=== PATIENT | female | born 1965 | race African-American/Black ===

== ENCOUNTER → 2016-10-03 | Outpatient (CLI) | payer BC ==
[2014-07-08 13:56] VITALS: BP 135/79
[~2016-10-03] MED LIST: HYDR-2666 PO; LORA0.5T PO; MULT1TAB97 PO; NIAC500T PO; QUIN1TAB4 PO; SERT25TA PO
--- NOTE | 2016-10-03 11:08 | RAD ---
DATE: 10/03/2016. EXAM: DIGITAL DIAGNOSTIC RT, BREAST RIGHT. Right breast ultrasound. HISTORY: Follow-up right-sided nodules. Personal history of right breast cancer status post breast conservation therapy. COMPARISON: 04/05/2016, 08/07/2015. This study was interpreted with the benefit of Computerized Aided Detection (CAD). FINDINGS: The breast parenchyma heterogeneously dense, which could reduce sensitivity of mammography. The previously noted small mammographic nodules deep to the nipple and medially appear mammographically smaller than on the prior study. Sonographically, there is a hypoechoic nodule at the 12:00 position 1 cm from the nipple that measures 6 x 5 x 4 m. It has a circumscribed or lobulated margin. See image 2. At the 1:00 position 1 cm from the nipple, a second hypoechoic nodule appears round or oval. It measures 4 x 4 mm as decreased in size from 5 x 5 mm previously. A benign lesion such a complicated cyst or fat necrosis is favored given interval decrease in size. There are breast conservation therapy changes superolaterally on the right. There are no suspicious calcifications or architectural distortion. Sonographic images of the right axilla were also obtained. There is a 14 x 11 mm lymph node with a thickened cortex. A second smaller lymph node measures 9 x 7 mm, but also demonstrates a thickened cortex. BI-RADS CATEGORY: 4 SUSPICIOUS ABNORMALITY-BIOPSY SHOULD BE CONSIDERED. RECOMMENDED FOLLOW-UP: BIO BIOPSY RECOMMENDED. 1. Recommend ultrasound-guided biopsy of the largest right axillary lymph node. 2. Recommend ultrasound-guided biopsy of the small lobulated nodule at the 12:00 position 1 cm from the nipple. PQRS compliance statement: Patient information was entered into a reminder system with a target due date (now) for the next mammogram. Mammography is a sensitive method for finding small breast cancers, but it does not detect them all and is not a substitute for careful clinical examination. A negative mammogram does not negate a clinically suspicious finding and should not result in delay in biopsying a clinically suspicious abnormality. "Our facility is accredited by the [employer] Mammography [employer]."
== END | disposition home or self-care (01) ==
LOC: MAMMO 09:25
PROVIDERS: ATTEND Internal Medicine Hematology & Oncology
DX: R92.8 Other abnormal and inconclusive findings on diagnostic imaging of breast (principal); N63 Unspecified lump in breast
CPT/HCPCS: 76641; G0206; 77065

== ENCOUNTER 2016-10-20 08:22 | Day surgery (SDC) | payer BC ==
[~2016-10-20] VITALS: Ht 165.1 cm; Wt 79.8 kg
--- NOTE | 2016-10-20 06:52 | HP ---
ADMIT DATE: 10/20/2016 HISTORY OF PRESENT ILLNESS: The patient comes in because of a mass of the right breast. 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 She now has 2 lymph nodes in the axilla, one which could be palpable and the mass in the breast seen on mammography. PAST MEDICAL HISTORY: Shows normal childhood diseases. As stated before, she has had multiple breast biopsies and surgery and also had a partial mastectomy on the right. She also has hypertension for which she takes medicines and takes tamoxifen also for the breast cancer. She otherwise is doing well. The family history is very strong with sisters and aunts and I think her mother, all had breast cancer. The patient has had the mammogram, which showed 2 axillary lymph nodes, which are enlarged and the mass of the breast behind the nipple on the right that we discussed at length with she and her and they definitely were given the option of needle biopsies, but they do not want that. They want to have the mass of the breast and the axillary masses removed. They do not want biopsies or needle biopsies though this was offered over and over to them. PHYSICAL EXAMINATION: GENERAL: Shows an alert female in no acute distress. HEENT: Grossly normal. CHEST: Clear bilaterally to auscultation. HEART: Had no murmurs, heaves, friction, rubs or thrills and had a regular rate of 70 beats per minute. BREASTS: The left axilla and left breast were normal without masses or other problems. The right breast had the deformity of the partial mastectomy and no other definite mass is palpable. There is some degree of tenderness of the breast. The right axilla did have a mass that I could feel about 1.5 cm or so in size in the right axilla. There was no evidence of inflammation or other problems. The examination otherwise was grossly negative. IMPRESSION: 1. Axillary adenopathy on the right. 2. Mass of the right breast. 3. Hypertension. 4. History of carcinoma in situ of the right breast and postoperative partial mastectomy. LUDIVINA RIZO MD DR: KATELYN/adele JOB#: [id number] / [id number]
[~2016-10-20 08:22] MED LIST changes: +CEFAZOLIN 1GM IVPB FOR OMNI 50 ML IV PRN; +FENTANYL PF 100 MCG/2 ML VIAL. IV PRN; +HYDROMORPHONE 2 MG/ML VIAL. IV PRN; +IV RINGERS,LACTATED 1000ML 1,000 ML IV SCH; +LIDOCAINE 1% 1 ML SYRINGE. ID PRN; +MORPHINE SULFATE 2 MG/ML DISP.SYRIN. IV PRN; +ONDANSETRON PF 4 MG/2 ML VIAL. IV PRN; +PROCHLORPERAZINE 10 MG/2 ML VIAL. IV PRN; +TAMO20TA PO
[2016-10-20 09:17] LABS: BASO % 1 % (0-3); EOS % 1 % (0-3); HEMATOCRIT 37.8 % (36.0-47.0); HEMOGLOBIN 12.2 g/dL (12.0-15.5); LYMPH # 1.5 x10^3/uL (1.0-4.8); LYMPH % 36 % (24-48); MEAN CORPUSCULAR HEMOGLOBIN 28 pg (25-35); MEAN CORPUSCULAR HGB CONC 32 g/dL (31-37); MEAN CORPUSCULAR VOLUME 87 fL (79-100); MONO % 6 % (0-9); NEUT % 56 % (31-73); PLATELET COUNT 198 x10^3/uL (140-400); RED BLOOD COUNT 4.33 x10^6/uL (3.50-5.40); RED CELL DISTRIBUTION WIDTH 13.4 % (11.5-14.5); WHITE BLOOD COUNT 4.1 x10^3/uL (4.0-11.0)
[2016-10-20 09:24] LABS: INR 0.9 (0.8-1.1); PROTHROMBIN TIME PATIENT 11.9 SEC (11.7-14.0)
[2016-10-20] MEDS ORDERED: METHYLENE BLUE 1% 1 ML VIAL. IJ ONE (09:45)
[2016-10-20] MEDS ORDERED: SEVOFLURANE 61 TO 120 MINUTES. IH ONE (09:47)
[2016-10-20] MEDS ORDERED: FENTANYL PF 100 MCG/2 ML VIAL. ONE ×2 (09:47→12:45)
[2016-10-20 09:48] LABS: CALCIUM 9.4 mg/dL (8.5-10.1); CREATININE 0.8 mg/dL (0.6-1.0); GFR 91.9; POTASSIUM 3.7 mmol/L (3.5-5.1)
[2016-10-20] MEDS ORDERED: LIDOCAINE 2% 100 MG/5 ML DISP.SYRIN. ONE (09:48)
[2016-10-20] MEDS ORDERED: PROPOFOL 20 ML IV ONE ×2 (09:48→11:33)
[2016-10-20] MEDS ORDERED: MIDAZOLAM HCL 2 MG/2 ML VIAL. ONE (09:48)
[2016-10-20] MEDS ORDERED: DEXAMETHASONE SOD PHOS 20 MG/5 ML VIAL. ONE (09:48)
[2016-10-20] MEDS ORDERED: ONDANSETRON PF 4 MG/2 ML VIAL. ONE (09:48)
[2016-10-20 10:02] LABS: ALBUMIN 3.6 g/dL (3.4-5.0); TOTAL BILIRUBIN 0.3 mg/dL (0.2-1.0); TOTAL PROTEIN 7.2 g/dL (6.4-8.2)
--- NOTE | 2016-10-20 11:15 | PDOC ---
SURGICAL PROGRESS NOTE Subjective No change in dictated H&P. Vital Signs Vital Signs Date Time Temp Pulse Resp B/P Pulse Ox O2 Delivery O2 Flow Rate FiO2 10/20/16 09:03 97.8 72 20 162/84 98 Room Air 97.8 Labs Laboratory Tests Test 10/20/16 09:10 White Blood Count 4.1x10^3/uL (4.0-11.0) Red Blood Count 4.33x10^6/uL (3.50-5.40) Hemoglobin 12.2g/dL (12.0-15.5) Hematocrit 37.8% (36.0-47.0) Mean Corpuscular Volume 87fL (79-100) Mean Corpuscular Hemoglobin 28pg (25-35) Mean Corpuscular Hemoglobin Concent 32g/dL (31-37) Red Cell Distribution Width 13.4% (11.5-14.5) Platelet Count 198x10^3/uL (140-400) Neutrophils (%) (Auto) 56% (31-73) Lymphocytes (%) (Auto) 36% (24-48) Monocytes (%) (Auto) 6% (0-9) Eosinophils (%) (Auto) 1% (0-3) Basophils (%) (Auto) 1% (0-3) Neutrophils # (Auto) 2.3x10^3uL (1.8-7.7) Lymphocytes # (Auto) 1.5x10^3/uL (1.0-4.8) Monocytes # (Auto) 0.3x10^3/uL (0.0-1.1) Eosinophils # (Auto) 0.1x10^3/uL (0.0-0.7) Basophils # (Auto) 0.0x10^3/uL (0.0-0.2) Prothrombin Time 11.9SEC (11.7-14.0) Prothromb Time International Ratio 0.9 (0.8-1.1) Sodium Level 146mmol/L (136-145) Potassium Level 3.7mmol/L (3.5-5.1) Chloride Level 107mmol/L (98-107) Carbon Dioxide Level 27mmol/L (21-32) Anion Gap 12 (6-14) Blood Urea Nitrogen 10mg/dL (7-20) Creatinine 0.8mg/dL (0.6-1.0) Estimated GFR (Cockcroft-Gault) 91.9 BUN/Creatinine Ratio 13 (6-20) Glucose Level 115mg/dL (70-99) Calcium Level 9.4mg/dL (8.5-10.1) Total Bilirubin 0.3mg/dL (0.2-1.0) Aspartate Amino Transf (AST/SGOT) 18U/L (15-37) Alanine Aminotransferase (ALT/SGPT) 28U/L (14-59) Alkaline Phosphatase 69U/L (46-116) Total Protein 7.2g/dL (6.4-8.2) Albumin 3.6g/dL (3.4-5.0) Albumin/Globulin Ratio 1.0 (1.0-1.7) Laboratory Tests Test 10/20/16 09:10 White Blood Count 4.1x10^3/uL (4.0-11.0) Red Blood Count 4.33x10^6/uL (3.50-5.40) Hemoglobin 12.2g/dL (12.0-15.5) Hematocrit 37.8% (36.0-47.0) Mean Corpuscular Volume 87fL (79-100) Mean Corpuscular Hemoglobin 28pg (25-35) Mean Corpuscular Hemoglobin Concent 32g/dL (31-37) Red Cell Distribution Width 13.4% (11.5-14.5) Platelet Count 198x10^3/uL (140-400) Neutrophils (%) (Auto) 56% (31-73) Lymphocytes (%) (Auto) 36% (24-48) Monocytes (%) (Auto) 6% (0-9) Eosinophils (%) (Auto) 1% (0-3) Basophils (%) (Auto) 1% (0-3) Neutrophils # (Auto) 2.3x10^3uL (1.8-7.7) Lymphocytes # (Auto) 1.5x10^3/uL (1.0-4.8) Monocytes # (Auto) 0.3x10^3/uL (0.0-1.1) Eosinophils # (Auto) 0.1x10^3/uL (0.0-0.7) Basophils # (Auto) 0.0x10^3/uL (0.0-0.2) Prothrombin Time 11.9SEC (11.7-14.0) Prothromb Time International Ratio 0.9 (0.8-1.1) Sodium Level 146mmol/L (136-145) Potassium Level 3.7mmol/L (3.5-5.1) Chloride Level 107mmol/L (98-107) Carbon Dioxide Level 27mmol/L (21-32) Anion Gap 12 (6-14) Blood Urea Nitrogen 10mg/dL (7-20) Creatinine 0.8mg/dL (0.6-1.0) Estimated GFR (Cockcroft-Gault) 91.9 BUN/Creatinine Ratio 13 (6-20) Glucose Level 115mg/dL (70-99) Calcium Level 9.4mg/dL (8.5-10.1) Total Bilirubin 0.3mg/dL (0.2-1.0) Aspartate Amino Transf (AST/SGOT) 18U/L (15-37) Alanine Aminotransferase (ALT/SGPT) 28U/L (14-59) Alkaline Phosphatase 69U/L (46-116) Total Protein 7.2g/dL (6.4-8.2) Albumin 3.6g/dL (3.4-5.0) Albumin/Globulin Ratio 1.0 (1.0-1.7) LUDIVINA RIZO MD Oct 20, 2016 11:15
--- NOTE | 2016-10-20 11:18 | PDOC ---
SURGICAL PROGRESS NOTE Subjective Op Note: Surgeon..........................................Konrad Pre op diag.....................................tumor right breast and left axilla Post op diag...................................same Anesthesia.....................................general Procedure......................................excision tumor right breast and right axilla per needle pocalization Drains............................................none Fluids............................................see anesthesia sheet Blood loss.....................................10cc Condition........................................satisfactory Vital Signs Vital Signs Date Time Temp Pulse Resp B/P Pulse Ox O2 Delivery O2 Flow Rate FiO2 10/20/16 09:03 97.8 72 20 162/84 98 Room Air 97.8 Labs Laboratory Tests Test 10/20/16 09:10 White Blood Count 4.1x10^3/uL (4.0-11.0) Red Blood Count 4.33x10^6/uL (3.50-5.40) Hemoglobin 12.2g/dL (12.0-15.5) Hematocrit 37.8% (36.0-47.0) Mean Corpuscular Volume 87fL (79-100) Mean Corpuscular Hemoglobin 28pg (25-35) Mean Corpuscular Hemoglobin Concent 32g/dL (31-37) Red Cell Distribution Width 13.4% (11.5-14.5) Platelet Count 198x10^3/uL (140-400) Neutrophils (%) (Auto) 56% (31-73) Lymphocytes (%) (Auto) 36% (24-48) Monocytes (%) (Auto) 6% (0-9) Eosinophils (%) (Auto) 1% (0-3) Basophils (%) (Auto) 1% (0-3) Neutrophils # (Auto) 2.3x10^3uL (1.8-7.7) Lymphocytes # (Auto) 1.5x10^3/uL (1.0-4.8) Monocytes # (Auto) 0.3x10^3/uL (0.0-1.1) Eosinophils # (Auto) 0.1x10^3/uL (0.0-0.7) Basophils # (Auto) 0.0x10^3/uL (0.0-0.2) Prothrombin Time 11.9SEC (11.7-14.0) Prothromb Time International Ratio 0.9 (0.8-1.1) Sodium Level 146mmol/L (136-145) Potassium Level 3.7mmol/L (3.5-5.1) Chloride Level 107mmol/L (98-107) Carbon Dioxide Level 27mmol/L (21-32) Anion Gap 12 (6-14) Blood Urea Nitrogen 10mg/dL (7-20) Creatinine 0.8mg/dL (0.6-1.0) Estimated GFR (Cockcroft-Gault) 91.9 BUN/Creatinine Ratio 13 (6-20) Glucose Level 115mg/dL (70-99) Calcium Level 9.4mg/dL (8.5-10.1) Total Bilirubin 0.3mg/dL (0.2-1.0) Aspartate Amino Transf (AST/SGOT) 18U/L (15-37) Alanine Aminotransferase (ALT/SGPT) 28U/L (14-59) Alkaline Phosphatase 69U/L (46-116) Total Protein 7.2g/dL (6.4-8.2) Albumin 3.6g/dL (3.4-5.0) Albumin/Globulin Ratio 1.0 (1.0-1.7) Laboratory Tests Test 10/20/16 09:10 White Blood Count 4.1x10^3/uL (4.0-11.0) Red Blood Count 4.33x10^6/uL (3.50-5.40) Hemoglobin 12.2g/dL (12.0-15.5) Hematocrit 37.8% (36.0-47.0) Mean Corpuscular Volume 87fL (79-100) Mean Corpuscular Hemoglobin 28pg (25-35) Mean Corpuscular Hemoglobin Concent 32g/dL (31-37) Red Cell Distribution Width 13.4% (11.5-14.5) Platelet Count 198x10^3/uL (140-400) Neutrophils (%) (Auto) 56% (31-73) Lymphocytes (%) (Auto) 36% (24-48) Monocytes (%) (Auto) 6% (0-9) Eosinophils (%) (Auto) 1% (0-3) Basophils (%) (Auto) 1% (0-3) Neutrophils # (Auto) 2.3x10^3uL (1.8-7.7) Lymphocytes # (Auto) 1.5x10^3/uL (1.0-4.8) Monocytes # (Auto) 0.3x10^3/uL (0.0-1.1) Eosinophils # (Auto) 0.1x10^3/uL (0.0-0.7) Basophils # (Auto) 0.0x10^3/uL (0.0-0.2) Prothrombin Time 11.9SEC (11.7-14.0) Prothromb Time International Ratio 0.9 (0.8-1.1) Sodium Level 146mmol/L (136-145) Potassium Level 3.7mmol/L (3.5-5.1) Chloride Level 107mmol/L (98-107) Carbon Dioxide Level 27mmol/L (21-32) Anion Gap 12 (6-14) Blood Urea Nitrogen 10mg/dL (7-20) Creatinine 0.8mg/dL (0.6-1.0) Estimated GFR (Cockcroft-Gault) 91.9 BUN/Creatinine Ratio 13 (6-20) Glucose Level 115mg/dL (70-99) Calcium Level 9.4mg/dL (8.5-10.1) Total Bilirubin 0.3mg/dL (0.2-1.0) Aspartate Amino Transf (AST/SGOT) 18U/L (15-37) Alanine Aminotransferase (ALT/SGPT) 28U/L (14-59) Alkaline Phosphatase 69U/L (46-116) Total Protein 7.2g/dL (6.4-8.2) Albumin 3.6g/dL (3.4-5.0) Albumin/Globulin Ratio 1.0 (1.0-1.7) LUDIVINA RIZO MD Oct 20, 2016 11:18
--- NOTE | 2016-10-20 11:21 | RAD ---
Indication history of breast malignancy. Anticipated surgery. Suspect nodule in the right breast and enlarged lymph node in the right axilla. Wire localization of a nodule in the right breast and an axillary lymph node was explained to the patient. Risks of infection and bleeding were outlined. Patient understood the nature of the procedure and wished to proceed. Preliminary imaging was performed and the targeted nodule at the 12:00 position of the right breast, 1 cm from the nipple, was identified as well as a somewhat enlarged lymph node in the right axilla. The skin was prepped and draped in the routine fashion. Initially the nodule was approached. Local anesthesia was accomplished with 1% lidocaine. The nodule was localized with a 5 cm Kopan's wire. At the completion of the localization the targeted nodule was immediately adjacent to the hook of the wire. Subsequently the axillary node was approached. Again local anesthesia was accomplished with 1% lidocaine. A 5 cm Kopans wire was utilized. At the completion of the procedure the wire was imbedded within the lymph node. Patient tolerated the procedures well. The Kopans wires were secured and taped to the chest wall. IMPRESSION: Successful wire localization of breast nodule at the 12:00 position of the right breast as well as an axillary lymph node
[2016-10-20] MEDS ORDERED: PHENYLEPHRINE in 0.9% NACL PF 1 MG/10 ML DISP.SYRIN. IV ONE (11:36)
[2016-10-20] MEDS ORDERED: EPHEDRINE SULFATE 50 MG/ML VIAL. ONE (11:49)
[2016-10-20] MEDS: FENTANYL PF 100 MCG/2 ML VIAL. IV PRN ×2 (13:56→14:40)
[2016-10-20] MEDS ORDERED: HYDR-2666 PO (14:24)
[2016-10-20] MEDS ORDERED: HYDROCODONE/APAP 5/325MG TABLET. PO PRN (14:30)
[2016-10-20] MEDS ORDERED: HYDROCODONE/APAP 5/325MG TABLET. ONE (14:32)
[2016-10-20 15:06] VITALS: BP 153/75
--- NOTE | 2016-10-21 01:33 | OP ---
DATE OF SURGERY: 10/20/2016 SURGEON: Rayshawn Rizo MD PREOPERATIVE DIAGNOSIS: Tumor of right breast and tumor of right axilla. POSTOPERATIVE DIAGNOSIS: Tumor of right breast and tumor of right axilla. ANESTHESIA: General. PROCEDURE: Excision of mass, right breast via needle localization and excision of mass, right axilla via needle localization. ANESTHESIA: General. TECHNIQUE: Within under general anesthesia, the patient was properly prepped and draped in routine fashion. Guidewire was placed lateral to the nipple in the right breast about an inch from the areola margin. We made an incision in circumareolar fashion between 12 and 6 o'clock position in lateral aspect, carried this down through the skin with a 15 blade and then undermined the subcutaneous over to the guidewire and then delivered the guidewire into the wound. We then grasped the guidewire and the tissue around it and using cautery and Metzenbaum scissors, we slowly divided the tissue around the guidewire. We saw the methylene blue, got all the tissue around it and passed the guidewire. We sent this to the lab. Radiologist said it was sonographically done and he could not see the specimen, but it was certain that was in there, since we got the area around the guidewire and the past the tip of the guidewire where the methylene blue was. As such, we proceeded to close the wound. We used 4-0 Vicryl in an interrupted fashion to obliterate the space and then 5-0 subcuticular Vicryl to close the skin. Next, an incision was made in the right axilla a little lower than normal, so that if she needed a mastectomy later we would incorporate this into the incision. We went into the axilla through the skin with a 15 blade and then opened this up with cautery. We then undermined the skin in the subcutaneous over the guidewire and then grasped the guidewire and the tissue around it. We then slowly did a similar procedure going around the guidewire past the methylene blue and got the mass that was in the guidewire and also the tissue around it, which incorporated a couple of more lymph nodes. We then slowly excised this from the surrounding tissue making certain not to damage any other contents. One small bleeder was suture ligated using 4-0 Vicryl suture. The specimen sent to the lab and had the pathologist come in, no one was there and we therefore proceeded to close the wound. We then used 4-0 Vicryl again to close the deeper tissues in a layered fashion interrupted and then closed the skin using a subcuticular 5-0 Vicryl. Procedure was now terminated. A sterile dressing was applied. The blood loss was probably less than 5-10mL. No drains were used. FLUIDS GIVEN: Can be obtained from the anesthesia sheet. CONDITION OF THE PATIENT: Satisfactory as she is returned to the recovery room. RAYSHAWN RIZO MD DR: KATELYN/adele JOB#: [id number] / [id number]
--- NOTE | 2016-10-24 17:32 | PATHOLOGY ---
PATHOLOGY REPORT * * * * * * * * FINAL DIAGNOSIS: A. Breast, dense fibroconnective, and focal attached skeletal muscle tissue, wire localized right breast biopsy: - Previous biopsy site changes showing small cavity, fibrosis, and focal mild chronic inflammation and foreign body giant cell reaction. - Mild ductal epithelial hyperplasia, focal. - Focal mild fibrocystic and fibroadenomatous changes. B. Breast and fibroadipose tissue and lymph node, axillary contents: - Single lymph node negative for tumor (0/1). - Ectopic breast tissue. COMMENT: Sections of the wire localized right breast biopsy show previous biopsy site changes. There is no evidence of residual ductal carcinoma in situ. Sections of the axillary contents reveal ectopic breast tissue and a single lymph node showing no evidence of metastatic carcinoma. (JPM:mgleena; d/t: 10/24/16) REPORT ELECTRONICALLY SIGNED BY: Timothy Thomson M.D. DATE/TIME: 10/24/2016 17:31 * * * * * * * * GROSS PATHOLOGY: A. The specimen is received in formalin, labeled "Laura Albert, right breast tissue". Received is a poorly circumscribed, unoriented segment of bright yellowpale white fibroadipose breast tissue, measuring 5.2 x 3.5 x 1.5 cm. The surgical resection margin is inked black. A needle localization wire is identified protruding from the specimen. Sectioning reveals a bright yellowpale white fibroadipose cut surface with a small localized area of possible calcification identified measuring 0.3 cm. No distinct solid masses or nodules are identified. The specimen is sectioned and entirely submitted in cassettes A1A9, with the area of possible calcification entirely submitted in cassette A4. The cold ischemic time 30 minutes and the total formalin fixation time is 24 hours. (COUNT INCLUDES THE [facility]; 10/20/2016) B. The specimen is received fresh and is designated "axillary contents." This consists of one larger irregular segment of yellow-red fatty tissue measuring up to 5.0 x 3.0 x 1.2 cm. There are three small additional segments of yellow-red fatty tissue measuring up to 0.6 cm. These are devoid of lymph nodes. Sectioning reveals a single pinkish brown lymph node measuring up to 0.7 cm. Most of the remainder of the specimen consists of yellow-red fatty tissue which is focally slightly firm but no additional discrete nodules are identified. The lymph node is bisected and is submitted along with three other small segments of yellow-red soft tissue in cassette B1. Sections from the slightly firm yellow-red fatty areas are submitted as B2 and B3. (JPM:mgleena; d/t: 10/20/16) INITIAL CPT CODE(S): A; 76460, 11503 Professional services [place] [facility] [place] [address] Technical services performed by [facility] at [address] [place] [address]. SPECIMEN(S) RECEIVED: A.Right breast tissue B.Axillary contents CLINICAL HISTORY: Right breast lump PATIENT: LAURA ALBERT /AGE: 512/12/1965 (Age: 50) PATIENT #: [id number] ALT CASE #: SPECIMEN COLLECTION DATE: 10/20/2016 SPECIMEN RECEIVED DATE: 10/20/2016 [facility] - [address] [place] [address] - PHONE: [phone] * * * END OF REPORT * * *
== END 2016-10-20 15:32 | disposition home or self-care (01) ==
LOC: SURG 08:22
PROVIDERS: ATTEND Specialist
DX: D49.3 Neoplasm of unspecified behavior of breast (principal); R59.1 Generalized enlarged lymph nodes; I10 Essential (primary) hypertension; M19.90 Unspecified osteoarthritis, unspecified site; F41.9 Anxiety disorder, unspecified; F32.9 Major depressive disorder, single episode, unspecified; Z87.39 Personal history of other diseases of the musculoskeletal system and connective tissue
CPT/HCPCS: 19083; 19125; 36415; 38525; 76942; 80053; 85027; 85610; J0690; J1100; J2250; J2370; J2405; J2704; J3010; J7120; Q9968

== ENCOUNTER → 2017-12-12 | Outpatient (CLI) | payer BC | END | disposition home or self-care (01) | LOC: MAMMO 12:16 | DX: D05.91 Unspecified type of carcinoma in situ of right breast (principal); Z85.3 Personal history of malignant neoplasm of breast | CPT/HCPCS: 77066 ==

== ENCOUNTER → 2018-01-02 | Day surgery (SDC) | payer BC ==
[~2018-01-02] MED LIST changes: -CEFAZOLIN 1GM IVPB FOR OMNI 50 ML IV PRN; -FENTANYL PF 100 MCG/2 ML VIAL. IV PRN; -HYDR-2666 PO; -HYDROMORPHONE 2 MG/ML VIAL. IV PRN; +IV RINGERS,LACTATED 1000ML 1,000 ML IV; -IV RINGERS,LACTATED 1000ML 1,000 ML IV SCH; -LIDOCAINE 1% 1 ML SYRINGE. ID PRN; +LIDOCAINE 1% PF 2 ML VIAL. ID; +LIDOCAINE 2% PF Vial for OR 5 ML VIAL.; -LORA0.5T PO; -MORPHINE SULFATE 2 MG/ML DISP.SYRIN. IV PRN; +MORPHINE SULFATE 4 MG/ML DISP.SYRIN. IV; -MULT1TAB97 PO; -NIAC500T PO; +ONDANSETRON PF 4 MG/2 ML VIAL. IV; -ONDANSETRON PF 4 MG/2 ML VIAL. IV PRN; +PROCHLORPERAZINE 10 MG/2 ML VIAL. IV; -PROCHLORPERAZINE 10 MG/2 ML VIAL. IV PRN; +PROPOFOL 40 ML IV; -QUIN1TAB4 PO; -SERT25TA PO; -TAMO20TA PO; +fentaNYL PF VIAL 100 MCG/2 ML VIAL IV
== END | disposition home or self-care (01) ==
LOC: SURG 08:41
DX: Z12.11 Encounter for screening for malignant neoplasm of colon (principal); I10 Essential (primary) hypertension; F32.9 Major depressive disorder, single episode, unspecified; Z85.3 Personal history of malignant neoplasm of breast; Z79.899 Other long term (current) drug therapy; Z91.040 Latex allergy status; Z91.010 Allergy to peanuts; Z90.49 Acquired absence of other specified parts of digestive tract; Z90.11 Acquired absence of right breast and nipple; M19.90 Unspecified osteoarthritis, unspecified site; F41.9 Anxiety disorder, unspecified
CPT/HCPCS: 45378; J2704

== ENCOUNTER → 2018-06-08 | Outpatient (CLI) | payer BC ==
[2018-01-02 10:14] VITALS: BP 132/75
[~2018-06-08] MED LIST changes: +AMLO5TAB7 PO; +HYDR-2758 PO; -IV RINGERS,LACTATED 1000ML 1,000 ML IV; -LIDOCAINE 1% PF 2 ML VIAL. ID; -LIDOCAINE 2% PF Vial for OR 5 ML VIAL.; +LORA0.5T PO; -MORPHINE SULFATE 4 MG/ML DISP.SYRIN. IV; +MULT1TAB97 PO; +NIAC500T PO; -ONDANSETRON PF 4 MG/2 ML VIAL. IV; -PROCHLORPERAZINE 10 MG/2 ML VIAL. IV; -PROPOFOL 40 ML IV; +QUIN1TAB13 PO; +SERT25TA PO; +TAMO20TA PO; -fentaNYL PF VIAL 100 MCG/2 ML VIAL IV
--- NOTE | 2018-06-08 15:29 | RAD ---
Right breast ultrasound, 06/08/2018: History: Breast nodule A targeted ultrasound exam of the right breast was performed in the area of reported clinical concern at the 10:00 location. Heterogeneous fibroglandular shadows are evident. No breast mass or unusual fluid collection is seen. IMPRESSION: The targeted ultrasound exam of the right breast reveals no abnormality. If clinical concern persists, 3-D mammography may be useful for further evaluation.
== END | disposition home or self-care (01) ==
LOC: US 14:10
PROVIDERS: ATTEND Internal Medicine Hematology & Oncology
DX: D05.91 Unspecified type of carcinoma in situ of right breast (principal)
CPT/HCPCS: 76641

== ENCOUNTER → 2019-01-08 | Outpatient (CLI) | payer BC ==
[2018-01-02 10:14] VITALS: BP 132/75
[~2019-01-08] MED LIST changes: +AMLO5TAB10 PO; -AMLO5TAB7 PO; -HYDR-2758 PO; +HYDR-2761 PO
--- NOTE | 2019-01-08 15:12 | RAD ---
DATE: 01/08/2019 EXAM: MAMMO NOEMY JAYROG BILAT, BREAST LEFT HISTORY: Previous right breast cancer, left breast lump COMPARISON: 12/12/2017 This study was interpreted with the benefit of Computerized Aided Detection (CAD). Breast Density: SCATTERED The breast parenchyma shows scattered fibroglandular densities. Breast parenchyma level B. FINDINGS: 2-D and 3-D tomosynthesis imaging was performed in CC and MLO projections. There is ongoing architectural distortion and nipple retraction in the central aspect of the right breast apparently on a postsurgical basis. No new or enlarging right breast densities are seen. Benign type calcifications are present in the right. No suspicious microcalcifications are seen. On the left, a skin marker was placed at the level of a palpable abnormality in the upper outer left breast posteriorly. There are multiple small lymph nodes in this region, similar to those seen on the 12/12/2017 exam. The largest of these nodes measures 10 mm and does appear to have increased slightly in size. There is is a 12 mm faint spiculated opacity near the level of the skin marker as best seen on oblique tomosynthesis image #51. Left breast ultrasound, 01/08/2019: A targeted ultrasound exam of the area of palpable concern in the superior aspect of the left breast was performed. With the patient's arm raised for the ultrasound imaging the nodule lies close to the 12:00 location approximately 13 cm from the nipple. At this level there is a 12 x 7 x 10 mm irregular hypoechoic process with posterior acoustic shadowing. This appears to correspond to the mammographic abnormality. The findings are suspicious for malignancy. We also scanned the left axilla. There there are 2 hypoechoic nodules each measuring approximately 9-10 mm. While not definitely pathologically enlarged, one of these has lost its normal echogenic hilum raising the possibility of tumor infiltration. IMPRESSION: . 1. Stable posttherapeutic changes in the right breast. 2. Small suspicious nodule corresponding to the area of palpable concern near the 12:00 location high in the left breast. Ultrasound-guided biopsy is suggested for further evaluation. 3. Mildly suspicious left axillary lymph node. Note: The findings were discussed with the patient at the time of the exam and she is aware of our recommendation for biopsy. She will follow-up with the ordering provider. BI-RADS CATEGORY: 4 SUSPICIOUS ABNORMALITY- BIOPSY SHOULD BE CONSIDERED RECOMMENDED FOLLOW-UP: BIO BIOPSY RECOMMENDED PQRS compliance statement: Patient information was entered into a reminder system with a target due date for the next mammogram. Mammography is a sensitive method for finding small breast cancers, but it does not detect them all and is not a substitute for careful clinical examination. A negative mammogram does not negate a clinically suspicious finding and should not result in delay in biopsying a clinically suspicious abnormality. "Our facility is accredited by the [employer] Mammography Program."
== END | disposition home or self-care (01) ==
LOC: MAMMO 13:08
PROVIDERS: ATTEND Internal Medicine Hematology & Oncology
DX: N64.89 Other specified disorders of breast (principal); N63.21 Unspecified lump in the left breast, upper outer quadrant; Z85.3 Personal history of malignant neoplasm of breast
CPT/HCPCS: 76641; 77066; G0279; 77062